=== PATIENT | male | born 1980 | race African-American/Black ===

== ENCOUNTER 2018-11-27 21:27 | Emergency (ER) | payer OTHER ==
[2018-11-27 21:54] VITALS: BP 156/84
--- NOTE | 2018-11-27 22:06 | UC ---
Complaint Male HPI - HPI Summary HPI Summary: 38 yo male desires STD testing lesions noted on penis hours ago recent unprotected sex desires STD testing - History of Current Complaint Chief Complaint: UCSkin Stated Complaint: PERSONAL Time Seen by Provider: 11/27/18 21:53 Hx Obtained From: Patient Onset/Duration: Sudden Onset, Lasting Hours Timing: Constant Severity Initially: Mild Severity Currently: Mild Pain Intensity: 0 Pain Scale Used: 0-10 Numeric Location: Penis Alleviating Factor(s): Nothing Associated Signs And Symptoms: Negative: Diaphoresis, Back Pain, Fever, Hematuria, Dysuria, Constipation, Blood in Stool, Rectal Pain, Appetite, Nausea , Vomiting(# Of Episodes =), Penile Swelling, Penile Discharge Prior STD Hx: neg Male Reproductive: 1 - cluster of vesicles - Allergies/Home Medications Allergies/Adverse Reactions: Allergies Allergy/AdvReac Type Severity Reaction Status Date / Time No Known Allergies Allergy Verified 11/27/18 21:54 PMH/Surg Hx/FS Hx/Imm Hx Previously Healthy: Yes - Surgical History Surgical History: None - Family History Known Family History: Positive: Non-Contributory Negative: Hypertension - Social History Alcohol Use: None Substance Use Type: None Smoking Status (MU): Never Smoked Tobacco - Immunization History Most Recent Influenza Vaccination: NA Most Recent Tetanus Shot: NA Most Recent Pneumonia Vaccination: NA Review of Systems All Other Systems Reviewed And Are Negative: Yes Constitutional: Positive: Negative Skin: Positive: Negative Eyes: Positive: Negative, Diplopia ENT: Positive: Negative Respiratory: Positive: Negative Cardiovascular: Positive: Negative Gastrointestinal: Positive: Negative Genitourinary: Positive: Negative Physical Exam Triage Information Reviewed: Yes Appearance: Well-Appearing, No Pain Distress, Well-Nourished Vital Signs: Initial Vital Signs Temp 98.3 F 11/27/18 21:45 Pulse 87 11/27/18 21:45 Resp 16 11/27/18 21:45 BP 156/84 11/27/18 21:45 Pulse Ox 100 11/27/18 21:45 Vital Signs Reviewed: Yes Eyes: Positive: Conjunctiva Clear ENT: Positive: Hearing grossly normal. Negative: Nasal congestion, Nasal drainage, Trismus, Uvula midline Neck: Positive: Supple Respiratory: Positive: Lungs clear, Normal breath sounds, No respiratory distress, No accessory muscle use Cardiovascular: Positive: RRR Abdomen Description: Positive: Nontender, No Organomegaly Bowel Sounds: Positive: Present Male Genital Exam: Positive: No Hernia, Lesions, Other - uncirc. Negative: Epididymal Tenderness, Erythema, Hernia Mass, Urethral Discharge Musculoskeletal Exam: Normal Musculoskeletal: Positive: ROM Intact, No Edema Neurological Exam: Normal Neurological: Positive: Alert Psychological Exam: Normal Skin Exam: Other - see image Complaint Male Course/Dx - Differential Dx/Diagnosis Provider Diagnosis: Lesion of penis, Elevated BP without diagnosis of hypertension Discharge - Sign-Out/Discharge Documenting (check all that apply): Patient Departure All imaging exams completed and their final reports reviewed: No Studies - Discharge Plan Condition: Stable Disposition: HOME Patient Education Materials: Sexually Transmitted Diseases (ED) Additional Instructions: BP needs rechecking tests are pending will start valtrex in case this is herpes - Billing Disposition and Condition Condition: STABLE Disposition: Home
[2018-11-28 13:09] LABS: Hepatitis B Surface AB Immune (Immune)
[2018-11-30 11:37] LABS: Neisseria gonorrhoeae (GC) RNA Negative (Negative)
[2018-11-30 18:16] LABS: HSV 1 PCR Negative (Negative); Herpes Source PENIS
== END 2018-11-27 22:36 | disposition home or self-care (01) ==
LOC: UCCORT 21:27
DX: N48.89 Other specified disorders of penis (principal); R03.0 Elevated blood-pressure reading, without diagnosis of hypertension
CPT/HCPCS: 36415; 86592; 86703; 86706; 87491; 87529; 87591; 99212; G0463